=== PATIENT | female | born 1965 | race Caucasian/White ===

== ENCOUNTER 2018-01-29 07:57 | Inpatient (IN) | payer BC ==
[~2018-01-29] VITALS: Ht 175.3 cm; Wt 105.0 kg
[2018-01-29] VITALS (13 sets, daily range): BP systolic 122–157; BP diastolic 68–95; PULSE 72–88; TEMP 36.6–37.1; O2SAT 95–100; Ht 175.3 cm; Wt 105.0 kg
[~2018-01-29 07:57] MED LIST: LEVO125T72 PO; MULT-922 PO; OXYC1TAB3 PO; PRT40 PO; RANI300T2 PO; SIMV5TAB2 PO; TRAM-10 PO
[2018-01-29] MEDS ORDERED: FAMOTIDINE 20MG/5ML IV PUSH IV STA (08:13)
[2018-01-29] MEDS ORDERED: PANTOprazole INJ 40 MG in SYRINGE 0 ML IV ONE ×2 (08:15→11:00)
--- NOTE | 2018-01-29 08:16 | EMERGENCY ROOM VISIT NOTE ---
History Report prepared by Dylon: Heidi Anthony Under the Supervision of: Dr. Zachery Mejias D.O. First contact with patient: 08:05 Chief Complaint: REFERRED BY DOCTOR Stated Complaint: H AND H 5.3 OR 6 History of Present Illness The patient is a 53 year old female who presents to the Emergency Room with complaints of abnormal lab results. She reports she saw her PCP yesterday because she "looked pale" and has been feeling weak for the past month. She had lab work drawn and her Hemoglobin came back at 5.3, so her doctor referred her here to the ED. The patient admits to using NSAID's frequently. She takes daily Protonix for a history of gastric ulcers but has not yet taken her dose today. She does not take daily blood thinners. She admits to abdominal pain and exertional chest pain. She denies any shortness of breath. She has been nauseous but has not vomited. She also complains of "dark stools" for the past 3 months. She follows with [facility] and states her last colonoscopy was in August 2016. Her last blood transfusion was 1.5 years ago. Source of History: patient Onset: [employer] Position: other (global) Quality: other (abnormal labs) Timing: constant Associated Symptoms: + chest pain, + nausea, + abdominal pain, + hematochezia, + weakness, No SOB, No vomiting Review of Systems See HPI for pertinent positives & negatives. A total of 10 systems reviewed and were otherwise negative. Past Medical & Surgical Medical Problems: (1) Chronic back pain (2) Gastric ulcer (3) HLD (hyperlipidemia) (4) Hypothyroidism Surgical Problems: (1) H/O laminectomy (2) H/O thyroidectomy (3) H/O total hysterectomy (4) H/O tubal ligation (5) History of ear surgery Family History Diabetes mellitus FH: cancer Stroke Social History Smoking Status: Never Smoker Alcohol Use: occasionally Drug Use: none Marital Status: Housing Status: lives with family Occupation Status: retired Current/Historical Medications Scheduled B-Complex Vitamins (Vitamin B Complex), 1 TAB PO DAILY Diclofenac (Voltaren), 50 MG PO TID Gabapentin (Neurontin), 300 MG PO HS Levothyroxine Sodium (Synthroid), 125 MCG PO DAILY Omeprazole (Prilosec), 20 CAP PO DAILY Ranitidine (Zantac), 300 MG PO HS Simvastatin (Zocor), 20 MG PO QPM Scheduled PRN Oxycodone Ir (Roxicodone Ir), 5 MG PO HS PRN for Severe Pain Tramadol (Ultram), 50 MG PO Q6H PRN for Pain Allergies Coded Allergies: Paroxetine (Verified Allergy, Unknown, ., 01/29/18) Physical Exam Vital Signs Date Time Temp Pulse Resp B/P (MAP) Pulse Ox O2 Delivery O2 Flow Rate FiO2 01/29/18 08:12 98 Room Air 01/29/18 07:59 36.5 89 18 133/74 100 Room Air Physical Exam GENERAL: Patient is awake alert in no acute distress patient is resting comfortably and showing no signs of anxiety EYES: The conjunctivae are clear. The pupils are round and reactive. EARS, NOSE, MOUTH AND THROAT: The nose is without any evidence of any deformity. Mucous membranes are moist tongue is midline NECK: The neck is nontender and supple. RESPIRATORY: Normal respiratory effort is noted there is no evidence of wheezing rhonchi or rales CARDIOVASCULAR: Regular rate and rhythm noted, systolic murmur suggested, there are no rubs or gallops normal S1 normal S2 GASTROINTESTINAL: The abdomen is mildly distended but soft. Epigastric tenderness to palpation, no guarding or rigidity. Bowel sounds are present in all quadrants. RECTAL: Dark stool, strongly heme positive. MUSCULOSKELETAL/EXTREMITIES: There is no evidence of gross deformity full range of motion is noted in the hips and shoulders SKIN: There is no obvious evidence of any rash. There are no petechiae, pallor or cyanosis noted. NEUROLOGIC: Patient is awake alert and oriented x3 Medical Decision & Procedures ER Provider Diagnostic Interpretation: Radiology results as stated below per my review and radiologist interpretation: CHEST ONE VIEW PORTABLE CLINICAL HISTORY: Altered mental status. COMPARISON STUDY: Chest radiograph August 30, 2016. FINDINGS: Lung volumes are normal. There is no pneumothorax or pleural effusion. Postoperative findings within the lumbar spine are partially imaged. There is moderate cardiomegaly with pulmonary vascular congestion. There is no evidence for overt edema. A large hiatal hernia is present. IMPRESSION: 1. Moderate cardiomegaly. Pulmonary vessels congestion without overt edema. 2. Large hiatal hernia. Electronically signed by: Antonio Park M.D. 01/29/2018 8:37 AM Laboratory Results 01/29/18 08:24 Red Blood Count 3.09, Mean Corpuscular Volume 67.0, Mean Corpuscular Hemoglobin 19.1, Mean Corpuscular Hemoglobin Concent 28.5, Mean Platelet Volume 8.2, Neutrophils (%) (Auto) 69.1, Lymphocytes (%) (Auto) 20.9, Monocytes (%) (Auto) 7.9, Eosinophils (%) (Auto) 1.7, Basophils (%) (Auto) 0.3, Neutrophils # (Auto) 5.26, Lymphocytes # (Auto) 1.59, Monocytes # (Auto) 0.60, Eosinophils # (Auto) 0.13, Basophils # (Auto) 0.02 01/29/18 08:24 Test 01/29/18 08:24 01/29/18 08:31 01/29/18 08:40 White Blood Count 7.61 K/uL (4.8-10.8) Red Blood Count 3.09 M/uL (4.2-5.4) Hemoglobin 5.9 g/dL (12.0-16.0) Hematocrit 20.7 % (37-47) Mean Corpuscular Volume 67.0 fL (80-100) Mean Corpuscular Hemoglobin 19.1 pg (25-34) Mean Corpuscular Hemoglobin Concent 28.5 g/dl (32-36) Platelet Count 369 K/uL (130-400) Mean Platelet Volume 8.2 fL (7.4-10.4) Neutrophils (%) (Auto) 69.1 % Lymphocytes (%) (Auto) 20.9 % Monocytes (%) (Auto) 7.9 % Eosinophils (%) (Auto) 1.7 % Basophils (%) (Auto) 0.3 % Neutrophils # (Auto) 5.26 K/uL (1.4-6.5) Lymphocytes # (Auto) 1.59 K/uL (1.2-3.4) Monocytes # (Auto) 0.60 K/uL (0.11-0.59) Eosinophils # (Auto) 0.13 K/uL (0-0.5) Basophils # (Auto) 0.02 K/uL (0-0.2) RDW Standard Deviation 48.4 fL (36.4-46.3) RDW Coefficient of Variation 19.6 % (11.5-14.5) Immature Granulocyte % (Auto) 0.1 % Immature Granulocyte # (Auto) 0.01 K/uL (0.00-0.02) Nucleated RBC Absolute Count (auto) 0.02 K/uL (0-0) Nucleated Red Blood Cells % 0.2 % Large Platelets 1+ Hypochromasia PRESENT Absolute Reticulocyte Count 0.08 10^6/uL (0.02-0.10) Percent Reticulocyte Count 2.7 % (0.5-2.0) Prothrombin Time 10.0 SECONDS (9.0-12.0) Prothromb Time International Ratio 1.0 (0.9-1.1) Activated Partial Thromboplast Time 21.3 SECONDS (21.0-31.0) Partial Thromboplastin Ratio 0.8 Anion Gap 7.0 mmol/L (3-11) Est Creatinine Clear Calc Drug Dose 84.0 ml/min Estimated GFR () 75.3 Estimated GFR (Non- 64.9 BUN/Creatinine Ratio 13.3 (10-20) Calcium Level 8.3 mg/dl (8.5-10.1) Magnesium Level 2.1 mg/dl (1.8-2.4) Iron Level 11 mcg/dl (35-150) Total Iron Binding Capacity 439 mcg/dl (250-450) Transferrin 342 mg/dl (200-360) Transferrin % Saturation 2 % (15-50) Ferritin 1.6 ng/ml (8.0-388.0) Total Bilirubin 0.3 mg/dl (0.2-1) Direct Bilirubin < 0.1 mg/dl (0-0.2) Aspartate Amino Transf (AST/SGOT) 15 U/L (15-37) Alanine Aminotransferase (ALT/SGPT) 21 U/L (12-78) Alkaline Phosphatase 109 U/L (45-117) Troponin I < 0.015 ng/ml (0-0.045) Total Protein 6.9 gm/dl (6.4-8.2) Albumin 3.3 gm/dl (3.4-5.0) Lipase 121 U/L (73-393) Thyroid Stimulating Hormone (TSH) 0.678 uIu/ml (0.300-4.500) Vitamin B12 Level 1961 pg/mL (211-911) Folate 19.47 ng/mL (>5.38) Urine Color YELLOW Urine Appearance CLEAR (CLEAR) Urine pH 6.5 (4.5-7.5) Urine Specific [place] 1.006 (1.000-1.030) Urine Protein NEG (NEG) Urine Glucose (UA) NEG (NEG) Urine Ketones NEG (NEG) Urine Occult Blood NEG (NEG) Urine Nitrite NEG (NEG) Urine Bilirubin NEG (NEG) Urine Urobilinogen NEG (NEG) Urine Leukocyte Esterase SMALL (NEG) Urine WBC (Auto) 1-5 /hpf (0-5) Urine RBC (Auto) 0-4 /hpf (0-4) Urine Hyaline Casts (Auto) 0 /lpf (0-5) Urine Epithelial Cells (Auto) 10-20 /lpf (0-5) Urine Bacteria (Auto) NEG (NEG) Laboratory results per my review. Medications Administered Medications (Trade) Dose Ordered Sig/Dianelys Route Start Time Stop Time Status Last Admin Dose Admin Pantoprazole Sodium 40 mg/ Syringe 10 ml @ 5 mls/min NOW ONCE IV 01/29/18 08:15 01/29/18 08:16 DC 01/29/18 09:04 5 MLS/MIN Famotidine (Pepcid 20mg Iv Push) 20 mg ONE STAT IV 01/29/18 08:13 01/29/18 08:15 DC 01/29/18 09:04 20 MG ED Course 0809: The patient was evaluated in room A10. A complete history and physical examination were performed. 0813: Famotidine 20 mg IV. 0815: Pantoprazole Sodium 40 mg/syringe 10 ml @ 5 mls/min IV. 0825: The patient has consented to a blood transfusion. Signed documentation is on the chart. 0835: I discussed the patients case with [facility]. The patient will be further evaluated. 0838: I discussed the patients case with [facility]. The patient will be further evaluated. Medical Decision Prior records/ancillary studies reviewed. Triage Nursing notes reviewed. The patient's history was concerning for possible gastrointestinal bleeding. Differential diagnosis: Etiologies such as diverticulosis, AVM, coagulopathy, colitis, inflammatory bowel disease, malignancy, Katie-Linares tear, esophagitis, peptic ulcer disease , variceal bleed, gastritis, epistaxis, fissure, hemorrhoids, as well as others were entertained. The patient is a 53-year-old female who presented to the emergency department for an evaluation of generalized weakness and dark stool. The patient has a history of significant NSAID use. The patient was seen in our facility for similar complaints in the past. In 2016 she was found to have GI bleeding but no definite source could be found despite upper and lower endoscopies. The patient saw her primary care physician yesterday and was found to have significant anemia. For this reason she was sent to the emergency department today for further evaluation. The patient was found to have a normal blood pressure. I discussed her case with the on-call [facility] hospitalist group as well as the on-call [facility] ski molder. The patient was given blood transfusion as well as IV proton pump inhibitors and IV H2 blockers. She was reevaluated multiple times. I discussed patient's laboratory and radiographic studies with her. Medication Reconcilliation Current Medication List: was personally reviewed by me Blood Pressure Screening Patient's blood pressure: Normal blood pressure Blood pressure disposition: Did not require urgent referral Consults Time Called: 0830 Consulting Physician: [facility] Returned Call: 0835 I discussed the patients case with [facility]. The patient will be further evaluated. Additional Consults: Time Called: 0835 Consulted Physician: [facility] Returned Call: 0838 Additional Comments: I discussed the patients case with [facility]. The patient will be further evaluated. Impression Primary Impression: Upper GI bleed Additional Impressions: Anemia Weakness Critical Care I have personally spent greater than 75 minutes of critical care time in the direct management of this patient. This includes bedside care, interpretation of diagnostic studies, and testing, discussion with consultants, patient, and family members, and other required patient management activities. This 75 minutes is in excess of all separately billable procedures. Scribe Attestation The scribe's documentation has been prepared under my direction and personally reviewed by me in its entirety. I confirm that the note above accurately reflects all work, treatment, procedures, and medical decision making performed by me. Departure Information Dispostion Being Evaluated By Hospitalist Referrals Michell Lam D.O. (PCP) Patient Instructions My [facility] Problem Qualifiers Additional Impressions: Anemia Anemia type: unspecified type Qualified Codes: D64.9 - Anemia, unspecified
--- NOTE | 2018-01-29 08:38 | DIAGNOSTIC IMAGING REPORT ---
CHEST ONE VIEW PORTABLE CLINICAL HISTORY: Altered mental status. COMPARISON STUDY: Chest radiograph August 30, 2016. FINDINGS: Lung volumes are normal. There is no pneumothorax or pleural effusion. Postoperative findings within the lumbar spine are partially imaged. There is moderate cardiomegaly with pulmonary vascular congestion. There is no evidence for overt edema. A large hiatal hernia is present. IMPRESSION: 1. Moderate cardiomegaly. Pulmonary vessels congestion without overt edema. 2. Large hiatal hernia. Electronically signed by: Antonio Park M.D. 01/29/2018 8:37 AM Dictated Date/Time: 01/29/2018 8:36 AM
[2018-01-29 08:48] LABS: PTT PATIENT 21.3 SECONDS (21.0-31.0)
[2018-01-29 08:55] LABS: HEMATOCRIT 20.7 % (37-47); HEMOGLOBIN 5.9 g/dL (12.0-16.0); MEAN CORPUSCULAR HEMOGLOBIN 19.1 pg (25-34); MEAN CORPUSCULAR HGB CONC 28.5 g/dl (32-36); MEAN PLATELET VOLUME 8.2 fL (7.4-10.4); NUCLEATED RED BLOOD CELL ABS 0.02 K/uL (0-0); PLATELET COUNT 369 K/uL (130-400); RED CELL DISTRIBUTION WIDTH CV 19.6 % (11.5-14.5); RED CELL DISTRIBUTION WIDTH SD 48.4 fL (36.4-46.3); WHITE BLOOD COUNT 7.61 K/uL (4.8-10.8)
[2018-01-29] MEDS ORDERED: DICL50TA3 PO (08:59)
[2018-01-29] MEDS ORDERED: SIMV20TA5 PO (08:59)
[2018-01-29] MEDS ORDERED: ACETAMINOPHEN 325 MG TAB PO PRN (09:00)
[2018-01-29] MEDS ORDERED: ONDANSETRON INJ 2 MG/ML 2 ML VIAL IV PRN ×2 (09:00→16:30)
[2018-01-29 09:03] LABS: ALBUMIN 3.3 gm/dl (3.4-5.0); ALT/SGPT 21 U/L (12-78); AST/SGOT 15 U/L (15-37); BLOOD UREA NITROGEN 13 mg/dl (7-18); CALCIUM 8.3 mg/dl (8.5-10.1); CARBON DIOXIDE 23 mmol/L (21-32); CREATININE 0.98 mg/dl (0.60-1.20); GLUCOSE 113 mg/dl (70-99); LIPASE 121 U/L (73-393); POTASSIUM 3.9 mmol/L (3.5-5.1); SODIUM 140 mmol/L (136-145)
[2018-01-29 09:04] LABS: BASO % 0.3 %; BASO ABS # 0.02 K/uL (0-0.2); EOS % 1.7 %; EOS ABS # 0.13 K/uL (0-0.5); IG# 0.01 K/uL (0.00-0.02); LYMPH % 20.9 %; LYMPH ABS # 1.59 K/uL (1.2-3.4); MONO % 7.9 %; NEUT % 69.1 %; NEUT ABS # 5.26 K/uL (1.4-6.5)
[2018-01-29 09:14] LABS: ALKALINE PHOSPHATASE 109 U/L (45-117); TOTAL PROTEIN 6.9 gm/dl (6.4-8.2)
[2018-01-29] MEDS ORDERED: PRLSR20 PO (09:19)
--- NOTE | 2018-01-29 09:26 | Gastrointestinal Consultation ---
Gastrointestinal Consultation Date of Consultation: January 29, 2018 Attending Physician: Zachery Mejias Consulting Physician: Dunia Crowder Reason for Consultation: Anemia, UGI? History of Present Illness Patient is a 53 year old female who was referred to ED by her PCP for anemia seen in outpt labs. She's been c/o tiredness and also seeing dark tarry stools earlier this year along w intermittent black stools w BMs. Outpt CBC yesterday showed H/H of 03/20. She had GI workup for anemia, black stools in the past including EGD in 2016 (large hiatal hernia, possible Celiac's disease), Colonoscopy 2017 (diverticulosis), VCE 2017 (-). She's been taking Tramadol and Voltaren for back pain. Denies any other OTC NSAID or ASA. Repeat H/H 5.06/18, INR normal, BUN normal. She had CXR which showed moderate cardiomegaly w/o pulmonary edema, large hiatal hernia. Past Medical/Surgical History Medical Problems: (1) Anemia Status: Acute (2) Anemia Status: Acute (3) Upper GI bleed Status: Acute (4) Upper GI bleed Status: Acute (5) Weakness Status: Acute Past Medical History: See above, hyperlipidemia, gastric ulcer, hypothyroidism Past Surgical History: Surgical Problems: (1) H/O colonoscopy (2) H/O laminectomy (3) H/O thyroidectomy (4) H/O total hysterectomy (5) H/O tubal ligation (6) History of ear surgery Family History Diabetes mellitus FH: cancer Stroke Social History Smoking Status: Never Smoker Alcohol Use: occasionally Drug Use: none Marital Status: Housing Status: lives with family Occupation Status: retired Allergies Coded Allergies: Paroxetine (Verified Allergy, Unknown, ., 01/29/18) Current Medications Home Meds and Scripts Medications Dose Route/Sig Max Daily Dose Days Date Category Zocor (Simvastatin) 20 Mg Tab 20 Mg PO QPM 01/29/18 Reported Voltaren (Diclofenac Sodium) 50 Mg [place] 50 Mg PO TID 01/29/18 Reported Pantoprazole Sodium (Pantoprazole) 40 Mg Tab 40 Mg PO BID 30 09/01/16 Rx Multivitamin Adults (Multiple Vitamins W/ Minerals) 1 Tab Tab 1 Tab PO DAILY 08/30/16 Reported Roxicodone Ir (Oxycodone HCl) 5 Mg Tab 5 Mg PO HS PRN 08/30/16 Reported Zantac (Ranitidine HCl) 300 Mg Tab 300 Mg PO HS 08/30/16 Reported Ultram (Tramadol HCl) 50 Mg Tab 50 Mg PO Q6H PRN 08/30/16 Reported Synthroid (Levothyroxine Sodium) 125 Mcg Tab 125 Mcg PO DAILY 08/30/16 Reported Review of Systems Constitutional: + weakness, No fever, No chills Respiratory: No cough, No shortness of breath Abdomen: + see HPI, No pain, No nausea, No vomiting Physical Exam Date Time Temp Pulse Resp B/P (MAP) Pulse Ox O2 Delivery O2 Flow Rate FiO2 01/29/18 08:12 98 Room Air 01/29/18 07:59 36.5 89 18 133/74 100 Room Air General Appearance: WD/WN, no apparent distress, + obese Eyes: normal inspection, PERRL, EOMI Neck: supple, no JVD, trachea midline Respiratory/Chest: normal breath sounds, no respiratory distress, no accessory muscle use Cardiovascular: regular rate, rhythm, no gallop, no murmur Abdomen: normal bowel sounds, non tender, soft Extremities: normal inspection, no pedal edema, no calf tenderness Neurologic/Psych: alert, normal mood/affect, oriented x 3 Skin: normal color, no jaundice, no rash Laboratory Results Last 24 Hours Test 01/29/18 08:24 01/29/18 08:31 01/29/18 08:40 White Blood Count 7.61 K/uL Red Blood Count 3.09 M/uL Hemoglobin 5.9 g/dL Hematocrit 20.7 % Mean Corpuscular Volume 67.0 fL Mean Corpuscular Hemoglobin 19.1 pg Mean Corpuscular Hemoglobin Concent 28.5 g/dl Platelet Count 369 K/uL Mean Platelet Volume 8.2 fL Neutrophils (%) (Auto) 69.1 % Lymphocytes (%) (Auto) 20.9 % Monocytes (%) (Auto) 7.9 % Eosinophils (%) (Auto) 1.7 % Basophils (%) (Auto) 0.3 % Neutrophils # (Auto) 5.26 K/uL Lymphocytes # (Auto) 1.59 K/uL Monocytes # (Auto) 0.60 K/uL Eosinophils # (Auto) 0.13 K/uL Basophils # (Auto) 0.02 K/uL RDW Standard Deviation 48.4 fL RDW Coefficient of Variation 19.6 % Immature Granulocyte % (Auto) 0.1 % Immature Granulocyte # (Auto) 0.01 K/uL Nucleated RBC Absolute Count (auto) 0.02 K/uL Nucleated Red Blood Cells % 0.2 % Large Platelets 1+ Hypochromasia PRESENT Prothrombin Time 10.0 SECONDS Prothromb Time International Ratio 1.0 Activated Partial Thromboplast Time 21.3 SECONDS Partial Thromboplastin Ratio 0.8 Sodium Level 140 mmol/L Potassium Level 3.9 mmol/L Chloride Level 111 mmol/L Carbon Dioxide Level 23 mmol/L Anion Gap 7.0 mmol/L Blood Urea Nitrogen 13 mg/dl Creatinine 0.98 mg/dl Est Creatinine Clear Calc Drug Dose 84.0 ml/min Estimated GFR () 75.3 Estimated GFR (Non- 64.9 BUN/Creatinine Ratio 13.3 Random Glucose 113 mg/dl Calcium Level 8.3 mg/dl Magnesium Level 2.1 mg/dl Transferrin % Saturation % Direct Bilirubin < 0.1 mg/dl Aspartate Amino Transf (AST/SGOT) 15 U/L Alanine Aminotransferase (ALT/SGPT) 21 U/L Albumin 3.3 gm/dl Lipase 121 U/L Urine Color YELLOW Urine Appearance CLEAR Urine pH 6.5 Urine Specific [place] 1.006 Urine Protein NEG Urine Glucose (UA) NEG Urine Ketones NEG Urine Occult Blood NEG Urine Nitrite NEG Urine Bilirubin NEG Urine Urobilinogen NEG Urine Leukocyte Esterase SMALL Urine WBC (Auto) 1-5 /hpf Urine RBC (Auto) 0-4 /hpf Urine Hyaline Casts (Auto) 0 /lpf Urine Epithelial Cells (Auto) 10-20 /lpf Urine Bacteria (Auto) NEG Impression Patient is a 53 year old female who was referred to ED for anemia, seeing intermittently dark stools for about 1 yr and also dark tarry stools in September. She's had prior endoscopies and VCE workup for anemia, black stools but nothing significant source of GI bleed was found. On her previous EGD, bx with possible Celiac disease. She has a large hiatal hernia. Recently been taking Tramadol and Voltaren for low back pain. Plan - PPI bolus and gtt - Keep NPO; last drank coffee and creamer 0730. Plan for EGD eval to r/o PUD, other sources for UGI bleed around 1330. - Transfuse PRBC, monitor H/H - Further recs after EGD completed. I saw and evaluated the patient. She notes that she has had several weeks of dark sticky stools without hematemesis. She was started on Voltaren by her primary care provider despite the fact that she has had occult GI bleeding in the past. Physical examination No obvious distress Scleral icterus No significant abdominal tenderness Impression: Patient presents with signs suggestive of upper GI blood loss. I suspect that the patient likely has peptic ulcer. At this point I wonder if it may be a healing ulcer as her symptoms had started several weeks ago. Recommendations Avoid NSAID use in this patient Consider a Protonix drip Upper endoscopy to be expedited
[2018-01-29 09:27] LABS: RETIC COUNT % 2.7 % (0.5-2.0)
[2018-01-29] MEDS ORDERED: B-COTAB18 PO (09:27)
[2018-01-29] MEDS ORDERED: NRN/300 PO (09:27)
--- NOTE | 2018-01-29 09:44 | History and Physical ---
History & Physical Date & Time of Service: January 29, 2018 ~ 0830 Chief Complaint: Low blood count Primary Care Physician: Michell Lam D.O. History of Present Illness 53-year-old female he was referred to the ED by primary care for anemia. Patient has history of anemia in August 2016. It was suspected she had GI blood loss from chronic NSAID use. Patient underwent EGD, colonoscopy, capsule endoscopy study that did not reveal source of bleeding. Patient reports she has had intermittent dark stools since that time. She reports last time her stools were dark with the beginning of November. No bright red bleeding per rectum. Patient has noted increasing shortness of breath on exertion for the past couple of weeks. She has had some mild lightheadedness and dizziness but denies any syncopal events. She reports chronic epigastric pain which has been worse over the past month. She reports pain improves after eating. She has had nausea but denies vomiting. Patient reports she does not take over-the- counter Advil or Motrin, however was recently prescribed diclofenac on November 27. She denies chest pain. No fevers or chills. She denies any urinary symptoms. Patient was seen by primary care yesterday who obtained labs that showed a hemoglobin of 6.3. She was referred to the ER for further evaluation. In the ED, patient's hemoglobin is 5.9. She is hemodynamic is stable. She was given Protonix bolus and started on a drip. She was also typed and crossed for blood. Past Medical/Surgical History Medical Problems: (1) Chronic back pain Status: Chronic (2) HLD (hyperlipidemia) Status: Chronic (3) Hypothyroidism Status: Chronic Surgical Problems: (1) H/O laminectomy Status: Chronic (2) H/O thyroidectomy Status: Chronic (3) H/O total hysterectomy Status: Chronic (4) H/O tubal ligation Status: Chronic (5) History of ear surgery Status: Chronic Family History FH: brain cancer MOTHER FH: lung cancer MOTHER Stroke FATHER Social History Smoking Status: Former Smoker Alcohol Use: none Allergies Coded Allergies: Paroxetine (Verified Allergy, Unknown, ., 01/29/18) Home Medications Scheduled B-Complex Vitamins (Vitamin B Complex), 1 TAB PO DAILY Diclofenac (Voltaren), 50 MG PO TID Gabapentin (Neurontin), 300 MG PO HS Levothyroxine Sodium (Synthroid), 125 MCG PO DAILY Omeprazole (Prilosec), 20 CAP PO DAILY Ranitidine (Zantac), 300 MG PO HS Simvastatin (Zocor), 20 MG PO QPM Scheduled PRN Oxycodone Ir (Roxicodone Ir), 5 MG PO HS PRN for Severe Pain Tramadol (Ultram), 50 MG PO Q6H PRN for Pain Review of Systems ROS per HPI, all other systems reviewed and negative Physical Exam Vital Signs Date Time Temp Pulse Resp B/P (MAP) Pulse Ox O2 Delivery O2 Flow Rate FiO2 01/29/18 09:15 96 01/29/18 09:11 86 18 141/75 98 Room Air 01/29/18 08:12 98 Room Air 01/29/18 07:59 36.5 89 18 133/74 100 Room Air General Appearance: WD/WN, no apparent distress Head: normocephalic, atraumatic Eyes: normal inspection, EOMI, sclerae normal ENT: hearing grossly normal, + pertinent finding (Mucous membranes moist) Neck: supple, no JVD, trachea midline Respiratory/Chest: lungs clear, normal breath sounds, no respiratory distress Cardiovascular: regular rate, rhythm, no edema, normal peripheral pulses Abdomen/GI: normal bowel sounds, non tender, soft, no organomegaly Extremities/Musculoskelatal: normal inspection, no calf tenderness, normal capillary refill Neurologic/Psych: no motor/sensory deficits, alert, normal mood/affect, oriented x 3 Skin: normal color, warm/dry Diagnostics Laboratory Results Results Past 24 Hours Test 01/29/18 08:24 01/29/18 08:31 01/29/18 08:40 Range/Units White Blood Count 7.61 4.8-10.8 K/uL Red Blood Count 3.09 4.2-5.4 M/uL Hemoglobin 5.9 12.0-16.0 g/dL Hematocrit 20.7 37-47 % Mean Corpuscular Volume 67.0 80-100 fL Mean Corpuscular Hemoglobin 19.1 25-34 pg Mean Corpuscular Hemoglobin Concent 28.5 32-36 g/dl Platelet Count 369 130-400 K/uL Mean Platelet Volume 8.2 7.4-10.4 fL Neutrophils (%) (Auto) 69.1 % Lymphocytes (%) (Auto) 20.9 % Monocytes (%) (Auto) 7.9 % Eosinophils (%) (Auto) 1.7 % Basophils (%) (Auto) 0.3 % Neutrophils # (Auto) 5.26 1.4-6.5 K/uL Lymphocytes # (Auto) 1.59 1.2-3.4 K/uL Monocytes # (Auto) 0.60 0.11-0.59 K/uL Eosinophils # (Auto) 0.13 0-0.5 K/uL Basophils # (Auto) 0.02 0-0.2 K/uL RDW Standard Deviation 48.4 36.4-46.3 fL RDW Coefficient of Variation 19.6 11.5-14.5 % Immature Granulocyte % (Auto) 0.1 % Immature Granulocyte # (Auto) 0.01 0.00-0.02 K/uL Nucleated RBC Absolute Count (auto) 0.02 0-0 K/uL Nucleated Red Blood Cells % 0.2 % Large Platelets 1+ Hypochromasia PRESENT Absolute Reticulocyte Count 0.08 0.02-0.10 10^6/uL Percent Reticulocyte Count 2.7 0.5-2.0 % Prothrombin Time 10.0 9.0-12.0 SECONDS Prothromb Time International Ratio 1.0 0.9-1.1 Activated Partial Thromboplast Time 21.3 21.0-31.0 SECONDS Partial Thromboplastin Ratio 0.8 Sodium Level 140 136-145 mmol/L Potassium Level 3.9 3.5-5.1 mmol/L Chloride Level 111 98-107 mmol/L Carbon Dioxide Level 23 21-32 mmol/L Anion Gap 7.0 3-11 mmol/L Blood Urea Nitrogen 13 7-18 mg/dl Creatinine 0.98 0.60-1.20 mg/dl Est Creatinine Clear Calc Drug Dose 84.0 ml/min Estimated GFR () 75.3 Estimated GFR (Non- 64.9 BUN/Creatinine Ratio 13.3 10-20 Random Glucose 113 70-99 mg/dl Calcium Level 8.3 8.5-10.1 mg/dl Magnesium Level 2.1 1.8-2.4 mg/dl Transferrin % Saturation 15-50 % Total Bilirubin 0.3 0.2-1 mg/dl Direct Bilirubin < 0.1 0-0.2 mg/dl Aspartate Amino Transf (AST/SGOT) 15 15-37 U/L Alanine Aminotransferase (ALT/SGPT) 21 12-78 U/L Alkaline Phosphatase 109 45-117 U/L Troponin I < 0.015 0-0.045 ng/ml Total Protein 6.9 6.4-8.2 gm/dl Albumin 3.3 3.4-5.0 gm/dl Lipase 121 73-393 U/L Thyroid Stimulating Hormone (TSH) 0.678 0.300-4.500 uIu/ml Vitamin B12 Level 1961 211-911 pg/mL Folate 19.47 >5.38 ng/mL Urine Color YELLOW Urine Appearance CLEAR CLEAR Urine pH 6.5 4.5-7.5 Urine Specific [place] 1.006 1.000-1.030 Urine Protein NEG NEG Urine Glucose (UA) NEG NEG Urine Ketones NEG NEG Urine Occult Blood NEG NEG Urine Nitrite NEG NEG Urine Bilirubin NEG NEG Urine Urobilinogen NEG NEG Urine Leukocyte Esterase SMALL NEG Urine WBC (Auto) 1-5 0-5 /hpf Urine RBC (Auto) 0-4 0-4 /hpf Urine Hyaline Casts (Auto) 0 0-5 /lpf Urine Epithelial Cells (Auto) 10-20 0-5 /lpf Urine Bacteria (Auto) NEG NEG Diagnostic Radiology CXR IMPRESSION: 1. Moderate cardiomegaly. Pulmonary vessels congestion without overt edema. 2. Large hiatal hernia. Impression Assessment and Plan ANEMIA LIKELY UPPER GI BLEED -Admit to telemetry -Patient presenting with intermittently dark stools, worsening epigastric pain, exertional shortness of breath; was seen by primary care yesterday who obtained labs that showed hemoglobin of 6.3, patient was referred to the ER for further evaluation -Currently hemodynamically stable -Patient has history of anemia in August 2016, was felt to be due to GI loss from chronic NSAID use; patient underwent EGD, colonoscopy, capsule endoscopy study without source of bleeding identified -Hgb 13.3 12/2016, Hgb 11.4 11/28/17 -Check iron studies -Patient started on diclofenac 11/2017 -Case discussed with CHADD Dorantes -N.p.o., IV PPI drip, 2 unit PRBC transfusion -Possible EGD today HYPOTHYROIDISM -Continue levothyroxine DYSLIPIDEMIA -Continue statin CHRONIC BACK PAIN -Continue gabapentin, as needed oxycodone and tramadol; diclofenac on hold due to possible upper GI bleeding DVT PROPHYLAXIS -SCDs due to anemia, possible GI bleeding DISPOSITION -In my clinical judgment this beneficiary meets acute admission criteria, established by [facility], that includes being hospitalized through two midnights. Addendum: I have seen and examined the patient and agree with the assessment and plan as stated above. Ivan, DO Resuscitation Status VTE Prophylaxis Will order VTE Prophylaxis: Yes
[2018-01-29] MEDS ORDERED: PANTOprazole INJ 40 MG in DEXTROSE 5% 100ML IV SCH (10:45)
[2018-01-29] MEDS: SODIUM CHLORIDE 0.9% 1000ML 1,000 ML IV SCH ×2 (11:13→21:43)
[2018-01-29] MEDS: OXYCODONE HCL IR 5 MG TAB (IMMEDIATE RELEASE) PO PRN ×2 (11:38→21:03)
[2018-01-29] MEDS ORDERED: LIDOCAINE HCL 2% 2 ML VIAL (20MG/ML) ONE ×2 (13:39→15:53)
[2018-01-29] MEDS ORDERED: PROPOFOL IV EMULSION 10 MG/ML 20 ML VIAL ONE ×2 (13:39→15:53)
[2018-01-29] MEDS ORDERED: FENTANYL CITRATE INJ 50 MCG/1 ML 2 ML VIAL ONE ×2 (13:39→15:54)
[2018-01-29] MEDS ORDERED: MIDAZOLAM HCL 1 MG/ML 2ML VIAL ONE (15:53)
[2018-01-29] MEDS ORDERED: ONDANSETRON INJ 2 MG/ML 2 ML VIAL ONE (15:53)
[2018-01-29] MEDS ORDERED: NEOSTIGMINE METHYLSULFATE 5 MG/5 ML SYR ONE (15:53)
[2018-01-29] MEDS ORDERED: DEXAMETHASONE SOD INJ 4 MG/ML VIAL ONE (15:53)
[2018-01-29] MEDS ORDERED: GLYCOPYRROLATE INJ 0.2 MG/ML VIAL ONE (15:53)
--- NOTE | 2018-01-29 16:19 | GI REPORT ---
Patient Name: Erica Salazar Procedure Date: 01/29/2018 4:04 PM Date of : 1965 Admit Type: Inpatient Age: 53 Gender: Female Attending MD: Dunia Crowder DO Procedure: Upper GI endoscopy Providers: Dunia Crowder DO Referring MD: Lucita Love Do, Isidro Santiago MD, Michell Lam Indications: Melena Medicines: General Anesthesia Complications: No immediate complications. Estimated blood loss: Minimal. Estimated Blood Loss: Estimated blood loss was minimal. Procedure: Pre-Anesthesia Assessment: - Prior to the procedure, a History and Physical was performed, and patient medications, allergies and sensitivities were reviewed. The patient's tolerance of previous anesthesia was reviewed. - The risks and benefits of the procedure and the sedation options and risks were discussed with the patient. All questions were answered and informed consent was obtained. - Patient identification and proposed procedure were verified prior to the procedure by the physician, the nurse and the video game developer. The procedure was verified in the procedure room. - Pre-procedure physical examination revealed no contraindications to sedation. - ASA Grade Assessment: III - A patient with severe systemic disease. - After reviewing the risks and benefits, the patient was deemed in satisfactory condition to undergo the procedure. - The anesthesia plan was to use general anesthesia. - Immediately prior to administration of medications, the patient was re-assessed for adequacy to receive sedatives. - The heart rate, respiratory rate, oxygen saturations, blood pressure, adequacy of pulmonary ventilation, and response to care were monitored throughout the procedure. - The physical status of the patient was re-assessed after the procedure. After obtaining informed consent, the endoscope was passed under direct vision. Throughout the procedure, the patient's blood pressure, pulse, and oxygen saturations were monitored continuously. The scope was introduced through the mouth, and advanced to the third part of duodenum. The upper GI endoscopy was accomplished without difficulty. The patient tolerated the procedure well. Findings: The upper third of the esophagus and middle third of the esophagus were normal. A web was found at the gastroesophageal junction (no dilation as patient is without dysphagia today). The cardia, gastric fundus and gastric body were normal. Patchy mild inflammation characterized by congestion (edema), erythema and granularity was found in the gastric antrum. Biopsies were taken with a cold forceps for histology. Estimated blood loss was minimal. Several non-bleeding superficial gastric ulcers of mild severity with no stigmata of bleeding were found in the gastric antrum. The largest lesion was 5 mm in largest dimension. The examined duodenum was normal. Impression: - Normal upper third of esophagus and middle third of esophagus. - Web at the gastroesophageal junction. - Normal cardia, gastric fundus and gastric body. - Gastritis. Biopsied. - Healing gastric ulcers with clean base. NSAID induced etiology. Likely source of melena and anemia. - Normal examined duodenum. Recommendation: - Return patient to hospital [facility] for ongoing care. - Use Prilosec (omeprazole) 40 mg PO BID for 6 weeks. - Ferrous sulfate at 325 mg orally BID for 6 weeks. Follow up with hemoglobin in 2 weeks. - Advance diet as tolerated. Dunia Crowder D.O. Dunia Crowder, 01/29/2018 4:19:01 PM This report has been signed electronically. Note Initiated On: 01/29/2018 4:04 PM Number of Addenda: 0 I attest to the content of the Intraoperative Record and orders documented therein, exceptions below {[id number]}
--- NOTE | 2018-01-29 16:20 | [facility] Post Operative Brief Note ---
Immediate Operative Summary Operative Date January 29, 2018. Pre-Operative Diagnosis Melana Post-Operative Diagnosis Gastritis, Gastric Ulcers Procedure(s) Performed Esophagogastroduodenoscopy Surgeon Dr. Dunia Crowder Economic History Teacher Surgeon(s) none Estimated Blood Loss 0 ml Findings Consistent with Post-Op Diagnosis Specimens Gastric antrum Drains None Anesthesia Type General Complication(s) none Disposition Accompanied Pt To Recover: no Disposition: Recovery Room / PACU
[2018-01-29] MEDS ORDERED: FENTANYL CITRATE INJ 50 MCG/1 ML 2 ML VIAL IV PRN (16:30)
[2018-01-29] MEDS ORDERED: ATROPINE SULFATE 0.1 MG/ML 5ML SYR IV PRN (16:30)
[2018-01-29] MEDS ORDERED: PROMETHAZINE HCL INJ 12.5 MG in SODIUM CHLORIDE 0.9% 50ML 50 ML IV PRN (16:30)
[2018-01-29] MEDS ORDERED: PHENYLEPHRINE 100MCG/ML 5ML SYR IV PRN (16:30)
[2018-01-29] MEDS ORDERED: EpHEDrine SULFATE INJ 50 MG/ML AMP IV PRN (16:30)
--- NOTE | 2018-01-29 16:38 | Progress Note ---
Progress Note Date of Service January 29, 2018. Progress Note Patient underwent an upper endoscopy this afternoon. She did have several superficial gastric ulcers which are likely the cause of her melena from last month. The patient was taking nonsteroidals which is likely the issue of her symptoms. At this point no formal GI follow-up as needed. Recommendations Advance diet as tolerated Pantoprazole or omeprazole 40 mg 1 time daily Iron supplement 2 times daily for 8 weeks CBC with PCM in 2 weeks f/u with Dr. Santiago in GI as needed
--- NOTE | 2018-01-29 16:54 | Anesthesiology Progress Note ---
Anesthesia Post Op Note Date & Time January 29, 2018 at 16:54 Vital Signs Pain Intensity: 0 Vital Signs Past 12 Hours Date Time Temp Pulse Resp B/P (MAP) Pulse Ox O2 Delivery O2 Flow Rate FiO2 01/29/18 16:39 90 18 01/29/18 16:39 90 18 100 01/29/18 16:35 140/78 01/29/18 16:34 90 15 100 01/29/18 16:34 90 15 01/29/18 16:30 125/97 01/29/18 16:29 95 16 100 01/29/18 16:29 96 16 01/29/18 16:24 36.6 107 16 122/87 100 Oxymask 10 01/29/18 16:24 100 14 01/29/18 16:24 100 14 122/87 100 01/29/18 15:45 36.6 74 16 159/91 (113) 100 Room Air 01/29/18 13:51 36.6 75 20 151/73 (99) 98 Room Air 01/29/18 13:50 36.6 75 20 151/73 98 01/29/18 13:00 36.7 72 20 130/68 100 01/29/18 12:00 36.6 79 20 122/80 100 01/29/18 12:00 36.6 80 16 122/80 (94) 100 Room Air 01/29/18 12:00 100 Room Air 01/29/18 11:30 36.6 84 18 150/72 100 01/29/18 11:27 36.6 88 18 150/72 100 01/29/18 10:28 36.6 79 18 157/72 100 01/29/18 10:08 37.1 77 16 152/75 97 01/29/18 09:46 83 22 137/76 96 Room Air 01/29/18 09:20 98 Room Air 01/29/18 09:15 96 01/29/18 09:11 86 18 141/75 98 Room Air 01/29/18 08:12 98 Room Air 01/29/18 07:59 36.5 89 18 133/74 100 Room Air Notes Mental Status: alert / awake / arousable, participated in evaluation Pt Amnestic to Procedure: Yes Nausea / Vomiting: adequately controlled Pain: adequately controlled Airway Patency, RR, SpO2: stable & adequate BP & HR: stable & adequate Hydration State: stable & adequate Anesthetic Complications: no major complications apparent
[2018-01-29] MEDS: TRAMADOL HCL 50 MG TAB PO PRN (19:13)
[2018-01-29 19:29] LABS: HEMATOCRIT 28.6 % (37-47); HEMOGLOBIN 8.8 g/dL (12.0-16.0)
[2018-01-29] MEDS ORDERED: GABAPENTIN 300 MG CAP PO SCH (21:00)
[2018-01-29] MEDS ORDERED: SIMVASTATIN 20 MG TAB PO SCH (21:00)
[2018-01-29] MEDS: PANTOprazole SOD 40 MG TAB PO SCH (21:04)
[2018-01-30] VITALS: O2SAT 100
[2018-01-30 03:04] VITALS: BP 115/67; PULSE 78; TEMP 36.6; O2SAT 96
[2018-01-30 04:00] VITALS: O2SAT 100
[2018-01-30] MEDS ORDERED: LEVOTHYROXINE 125 MCG TAB PO SCH (06:00)
[2018-01-30 06:54] VITALS: BP 117/72; PULSE 69; TEMP 36.8; O2SAT 99
[2018-01-30 07:00] LABS: HEMATOCRIT 31.1 % (37-47); HEMOGLOBIN 9.6 g/dL (12.0-16.0); MEAN CORPUSCULAR HEMOGLOBIN 21.6 pg (25-34); MEAN CORPUSCULAR HGB CONC 30.9 g/dl (32-36); MEAN PLATELET VOLUME 8.3 fL (7.4-10.4); PLATELET COUNT 358 K/uL (130-400); RED CELL DISTRIBUTION WIDTH CV 19.8 % (11.5-14.5); RED CELL DISTRIBUTION WIDTH SD 50.6 fL (36.4-46.3); WHITE BLOOD COUNT 13.34 K/uL (4.8-10.8)
[2018-01-30 07:34] LABS: CALCIUM 8.9 mg/dl (8.5-10.1); CREATININE 0.93 mg/dl (0.60-1.20); POTASSIUM 4.5 mmol/L (3.5-5.1)
--- NOTE | 2018-01-30 07:54 | Anesthesiology Progress Note ---
Anesthesia Post Op Note Date & Time January 30, 2018 at 07:53 Vital Signs Pain Intensity: 8.0 Vital Signs Past 12 Hours Date Time Temp Pulse Resp B/P (MAP) Pulse Ox O2 Delivery O2 Flow Rate FiO2 01/30/18 06:54 36.8 69 18 117/72 (87) 99 Room Air 01/30/18 04:00 100 Room Air 01/30/18 03:04 36.6 78 17 115/67 (83) 96 Room Air 01/30/18 00:00 100 Room Air 01/29/18 23:18 36.6 76 18 137/76 (96) 95 Room Air 01/29/18 20:00 100 Room Air Notes Mental Status: alert / awake / arousable, participated in evaluation Pt Amnestic to Procedure: Yes Nausea / Vomiting: adequately controlled Pain: adequately controlled Airway Patency, RR, SpO2: stable & adequate BP & HR: stable & adequate Hydration State: stable & adequate Anesthetic Complications: no major complications apparent
[2018-01-30] MEDS: PANTOprazole SOD 40 MG TAB PO SCH (08:04)
[2018-01-30] MEDS: TRAMADOL HCL 50 MG TAB PO PRN (09:27)
--- NOTE | 2018-01-30 10:46 | Gastroenterology Progress Note ---
Progress Note Date of Service: January 30, 2018 Subjective Pt evaluation today including: conversation w/ patient, physical exam, chart review, lab review, review of studies, review of inpatient medication list Ms. Erica Salazar is a 53 yr old female admitted with nausea/epigastric pain, melena and anemia with Hb 5.9. She received 2 units and Hb is now 9.6. EGD yesterday with several small, superficial gastric ulcers, largest 5mm. Today pain with eating breakfast but no nausea/vomiting and wants to try regular consistency diet and be discharged. Review of Systems Constitutional: No fever Respiratory: No cough Cardiac: No chest pain Abdomen: + see HPI, + pain, No nausea, No vomiting, No diarrhea, No constipation, No GI bleeding Female : No dysuria Neuro: No memory loss Psych: No depression symptoms Heme: No abnormal bleeding/bruising Endo: No fatigue Skin: No rash Medications Current Inpatient Medications Medications (Trade) Dose Ordered Sig/Dianelys Route Start Time Stop Time Status Last Admin Dose Admin Acetaminophen (Tylenol Tab) 650 mg Q4H PRN PO 01/29/18 09:00 02/28/18 08:59 Ondansetron HCl (Zofran Inj) 4 mg Q6H PRN IV 01/29/18 09:00 02/28/18 08:59 Sodium Chloride 1,000 ml @ 80 mls/hr [id number] IV 01/29/18 09:00 02/28/18 08:59 01/29/18 21:43 80 MLS/HR Gabapentin (Neurontin Cap) 300 mg HS PO 01/29/18 21:00 02/28/18 20:59 01/29/18 21:15 300 MG Levothyroxine Sodium (Synthroid Tab) 125 mcg DAILYBB PO 01/30/18 06:00 03/01/18 05:59 01/30/18 05:52 125 MCG Oxycodone HCl (Roxicodone Immediate Rel Tab) 5 mg HS PRN PO 01/29/18 09:30 02/12/18 09:29 01/29/18 21:03 5 MG Simvastatin (Zocor Tab) 20 mg QPM PO 01/29/18 21:00 02/28/18 20:59 01/29/18 21:43 20 MG Tramadol HCl (Ultram Tab) 50 mg Q6H PRN PO 01/29/18 09:30 02/28/18 09:29 01/30/18 09:27 50 MG Pantoprazole Sodium (Protonix Tab) 40 mg BID PO 01/29/18 21:00 02/28/18 20:59 01/30/18 08:04 40 MG Objective Vital Signs Date Time Temp Pulse Resp B/P (MAP) Pulse Ox O2 Delivery O2 Flow Rate FiO2 01/30/18 08:00 Room Air 01/30/18 06:54 36.8 69 18 117/72 (87) 99 Room Air 01/30/18 04:00 100 Room Air 01/30/18 03:04 36.6 78 17 115/67 (83) 96 Room Air 01/30/18 00:00 100 Room Air 01/29/18 23:18 36.6 76 18 137/76 (96) 95 Room Air 01/29/18 20:00 100 Room Air 01/29/18 18:21 87 20 139/95 (110) 99 Room Air 01/29/18 18:06 88 18 136/87 (103) 99 Room Air 01/29/18 18:00 100 Room Air 01/29/18 17:42 37.1 99 Room Air 01/29/18 17:40 134/72 01/29/18 17:37 86 18 01/29/18 17:37 86 18 99 01/29/18 17:35 139/82 01/29/18 17:32 89 16 01/29/18 17:32 88 16 99 01/29/18 17:30 123/82 01/29/18 17:27 90 13 01/29/18 17:27 90 13 99 01/29/18 17:26 91 16 98 01/29/18 17:26 91 16 01/29/18 17:25 147/84 01/29/18 17:21 95 16 01/29/18 17:21 94 16 127/84 99 01/29/18 17:16 89 15 01/29/18 17:16 88 15 99 01/29/18 17:15 132/86 01/29/18 17:13 86 17 01/29/18 17:13 87 17 97 01/29/18 17:11 132/85 01/29/18 17:08 89 16 96 01/29/18 17:08 89 16 01/29/18 17:05 138/82 01/29/18 17:03 92 14 98 01/29/18 17:03 92 14 01/29/18 17:02 88 15 01/29/18 17:02 90 15 100 01/29/18 17:00 140/92 01/29/18 16:57 93 16 99 01/29/18 16:57 91 16 01/29/18 16:56 37.1 100 Room Air 01/29/18 16:55 150/100 01/29/18 16:52 106 14 01/29/18 16:52 104 14 100 01/29/18 16:51 127/76 01/29/18 16:50 94 15 100 01/29/18 16:50 94 15 01/29/18 16:45 90 13 01/29/18 16:45 90 13 127/96 100 01/29/18 16:41 142/70 01/29/18 16:40 91 18 01/29/18 16:40 92 18 100 01/29/18 16:39 90 18 01/29/18 16:39 90 18 100 01/29/18 16:35 140/78 01/29/18 16:34 90 15 100 01/29/18 16:34 90 15 01/29/18 16:30 125/97 01/29/18 16:29 95 16 100 01/29/18 16:29 96 16 01/29/18 16:24 36.6 107 16 122/87 100 Oxymask 10 01/29/18 16:24 100 14 01/29/18 16:24 100 14 122/87 100 01/29/18 15:45 36.6 74 16 159/91 (113) 100 Room Air 01/29/18 13:51 36.6 75 20 151/73 (99) 98 Room Air 01/29/18 13:50 36.6 75 20 151/73 98 01/29/18 13:00 36.7 72 20 130/68 100 01/29/18 12:00 36.6 79 20 122/80 100 01/29/18 12:00 36.6 80 16 122/80 (94) 100 Room Air 01/29/18 12:00 100 Room Air 01/29/18 11:30 36.6 84 18 150/72 100 5/3/18 11:27 36.6 88 18 150/72 100 Physical Exam General Appearance: no apparent distress ENT: pharynx normal Neck: thyroid normal, no JVD Respiratory/Chest: lungs clear Cardiovascular: regular rate, rhythm, no JVD, no murmur Abdomen: non tender, soft Neurologic/Psych: alert, normal mood/affect, oriented x 3 Skin: no jaundice Laboratory Results Last 24 Hours Test 01/29/18 18:53 01/30/18 06:36 Hemoglobin 8.8 g/dL 9.6 g/dL Hematocrit 28.6 % 31.1 % White Blood Count 13.34 K/uL Red Blood Count 4.44 M/uL Mean Corpuscular Volume 70.0 fL Mean Corpuscular Hemoglobin 21.6 pg Mean Corpuscular Hemoglobin Concent 30.9 g/dl RDW Standard Deviation 50.6 fL RDW Coefficient of Variation 19.8 % Platelet Count 358 K/uL Mean Platelet Volume 8.3 fL Sodium Level 138 mmol/L Potassium Level 4.5 mmol/L Chloride Level 110 mmol/L Carbon Dioxide Level 23 mmol/L Anion Gap 5.0 mmol/L Blood Urea Nitrogen 8 mg/dl Creatinine 0.93 mg/dl Est Creatinine Clear Calc Drug Dose 88.2 ml/min Estimated GFR () 80.2 Estimated GFR (Non- 69.2 BUN/Creatinine Ratio 9.1 Random Glucose 97 mg/dl Calcium Level 8.9 mg/dl Chemistry Specimen Hemolysis Assessment and Plan Ms. Salazar is a 53 yr old female admitted with anemia, EGD with gastric ulcers. Plan: 1. Consider UGI series to r/o large hiatal hernia as mentioned on EGD [place] [address] Santiago, though not apparent on EGD yesterday. This test could but could be done as an OP. If present, Mango's erosions could be the cause of slow, persistent bleeding that would cause anemia. 2. Regular consistency diet. 3. BID PPI x 6 weeks, then should be on daily PPI (40mg) daily - mcc. 4. Carafate liquid QID x 2 weeks. 5. GI will sign off. Please notify us if new or worsening GI symptoms. I saw and evaluated the patient she seems to be doing better today. Recommendations: Protonix or omeprazole 1 time daily Iron supplement 2 times daily for 8 weeks then 1 time daily UGI series as OP f/u wiht GI as needed
[2018-01-30 12:00] VITALS: BP 128/71; PULSE 76; TEMP 36.7; O2SAT 100
[2018-01-30] MEDS ORDERED: SUCRALFATE 1 GM/10 ML UDC PO SCH (13:00)
[2018-01-30] MEDS ORDERED: SUCR5SUS PO (13:27)
[2018-01-30] MEDS ORDERED: PRT40 PO (13:27)
--- NOTE | 2018-01-30 13:52 | Discharge Instructions ---
Discharge Instructions Date of Service January 30, 2018. Admission Reason for Admission: H And H 5.3 Or 6 Discharge Discharge Diagnosis / Problem: Symptomatic anemia, UGIB 2/2 PUD Discharge Goals Goal(s): Improve disease control, Prevent Disease Progression Activity Recommendations Activity Limitations: per Instructions/Follow-up section . Instructions / Follow-Up Instructions / Follow-Up Please take all medications as instructed on discharge list. Specifically, it is recommended that you take PRILOSEC 40mg TWICE DAILY x 6 weeks, and then switch to once daily. Also, CARAFATE suspension has been ordered for you to take FOUR TIMES DAILY x 2 weeks. Please follow-up with [facility] as instructed. You have a follow-up appointment with Dr. Lam on , 02/03 @ 12:45pm for follow-up from this hospitalization. The Gastroenterology team did recommend an UGI series as an outpatient to look for a large hiatal hernia which was seen on your chest x-ray. This can be ordered through your primary care office and results followed up with the Podiatric Assistant. It was a pleasure taking care of you! Call if you have any questions or problems. You can reach a [facility] hospitalist on duty at [facility] 24 hours a day by calling [phone]. Take care of yourself. Lucita Love DO [facility] Hospitalist Current Hospital Diet Patient's current hospital diet: Regular Diet Discharge Diet Recommended Diet: Regular Diet Procedures Procedures Performed: Esophagogastroduodenoscopy Pending Studies Studies pending at discharge: yes List of pending studies: stomach pathology pending at discharge Medical Emergencies . Who to Call and When: Medical Emergencies: If at any time you feel your situation is an emergency, please call 911 immediately. . Non-Emergent Contact Non-Emergency issues call your: Primary Care Provider . . "Provider Documentation" section prepared by Lucita Love. .
--- NOTE | 2018-01-30 13:55 | Discharge Summary ---
Discharge Summary Date of Service January 30, 2018. Discharge Summary Admission Date: January 29, 2018 at 08:55 Discharge Date: January 30, 2018 Discharge Disposition: Home Principal Diagnosis: UGIB 2/2 PUD post-hemorrhagic anemia Procedures: Endoscopy Vaccinations: None. Consultations: Gastroenterology-Vel Pending Studies/Follow-Up: see instructions below Medication Reconciliation New Medications: Pantoprazole (Pantoprazole Sodium) 40 Mg Tab 40 MG PO BID for 30 Days, #60 TAB 1 Refill Sucralfate (Sucralfate) 1 Gm/10 Ml Megan 1 GM PO QID for 15 Days, #420 ML 1 Refill Take four times daily for two weeks. Continued Medications: B-Complex Vitamins (Vitamin B Complex) 1 Tab Tab 1 TAB PO DAILY Gabapentin (Neurontin) 300 Mg Cap 300 MG PO HS, CAP Levothyroxine Sodium (Synthroid) 125 Mcg Tab 125 MCG PO DAILY, TAB Oxycodone Ir (Roxicodone Ir) 5 Mg Tab 5 MG PO HS PRN for Severe Pain, TAB Simvastatin (Zocor) 20 Mg Tab 20 MG PO QPM, TAB Tramadol (Ultram) 50 Mg Tab 50 MG PO Q6H PRN for Pain, TAB Discontinued Medications: Diclofenac (Voltaren) 50 Mg Tabec 50 MG PO TID, TAB Omeprazole (Prilosec) 20 Mg Capcr 20 CAP PO DAILY, CAP Ranitidine (Zantac) 300 Mg Tab 300 MG PO HS, TAB Admission Information HPI (per Admitting provider): 53-year-old female he was referred to the ED by primary care for anemia. Patient has history of anemia in August 2016. It was suspected she had GI blood loss from chronic NSAID use. Patient underwent EGD, colonoscopy, capsule endoscopy study that did not reveal source of bleeding. Patient reports she has had intermittent dark stools since that time. She reports last time her stools were dark with the beginning of November. No bright red bleeding per rectum. Patient has noted increasing shortness of breath on exertion for the past couple of weeks. She has had some mild lightheadedness and dizziness but denies any syncopal events. She reports chronic epigastric pain which has been worse over the past month. She reports pain improves after eating. She has had nausea but denies vomiting. Patient reports she does not take over-the- counter Advil or Motrin, however was recently prescribed diclofenac on November 27. She denies chest pain. No fevers or chills. She denies any urinary symptoms. Patient was seen by primary care yesterday who obtained labs that showed a hemoglobin of 6.3. She was referred to the ER for further evaluation. In the ED, patient's hemoglobin is 5.9. She is hemodynamic is stable. She was given Protonix bolus and started on a drip. She was also typed and crossed for blood. Physical Exam (per Admitting): General Appearance: WD/WN, no apparent distress Head: normocephalic, atraumatic Eyes: normal inspection, EOMI, sclerae normal ENT: hearing grossly normal, + pertinent finding (Mucous membranes moist) Neck: supple, no JVD, trachea midline Respiratory/Chest: lungs clear, normal breath sounds, no respiratory distress Cardiovascular: regular rate, rhythm, no edema, normal peripheral pulses Abdomen/GI: normal bowel sounds, non tender, soft, no organomegaly Extremities/Musculoskelatal: normal inspection, no calf tenderness, normal capillary refill Neurologic/Psych: no motor/sensory deficits, alert, normal mood/affect, oriented x 3 Skin: normal color, warm/dry Hospital Course Total time spent on discharge = 60 minutes This includes examination of the patient, discharge planning, medication reconciliation, and communication with other providers. [place] [address] Discharge Medical Patient Name: Erica Salazar Unit Number: [id number] Date of : 1965 Patient Status: Admitted Inpatient Attending Doctor: Lucita Love DO DI: Medical v5 Discharge Instructions Date of Service January 30, 2018. Admission Reason for Admission: H And H 5.3 Or 6 Discharge Discharge Diagnosis / Problem: Symptomatic anemia, UGIB 2/2 PUD Discharge Goals Goal(s): Improve disease control, Prevent Disease Progression Activity Recommendations Activity Limitations: per Instructions/Follow-up section . Instructions / Follow-Up Instructions / Follow-Up Please take all medications as instructed on discharge list. Specifically, it is recommended that you take PRILOSEC 40mg TWICE DAILY x 6 weeks, and then switch to once daily. Also, CARAFATE suspension has been ordered for you to take FOUR TIMES DAILY x 2 weeks. Please follow-up with [facility] as instructed. You have a follow-up appointment with Dr. Lam on , 02/03 @ 12:45pm for follow-up from this hospitalization. The Gastroenterology team did recommend an UGI series as an outpatient to look for a large hiatal hernia which was seen on your chest x-ray. This can be ordered through your primary care office and results followed up with the Regional Transportation Manager. It was a pleasure taking care of you! Call if you have any questions or problems. You can reach a [facility] hospitalist on duty at [facility] 24 hours a day by calling [phone]. Take care of yourself. Lucita Love DO [facility] Hospitalist Current Hospital Diet Patient's current hospital diet: Regular Diet Discharge Diet Recommended Diet: Regular Diet Procedures Procedures Performed: Esophagogastroduodenoscopy Pending Studies Studies pending at discharge: yes List of pending studies: stomach pathology pending at discharge Medical Emergencies . Who to Call and When: Medical Emergencies: If at any time you feel your situation is an emergency, please call 911 immediately. . Non-Emergent Contact Non-Emergency issues call your: Primary Care Provider . . "Provider Documentation" section prepared by uLcita Love. . Additional Copies To Michell Lam D.O.
[2018-01-30 13:57] VITALS: BP 128/71; PULSE 76; TEMP 36.7; O2SAT 100
--- NOTE | 2018-02-02 06:39 | EDITING REQUIRED CODING QUERY ---
CODING QUERY To promote full compliance with coding requirements relating to patient care, provider participation is requested in all cases of remote medical coder uncertainty. Please assist us with the question(s) below: Coding Question(s): There is Post-hemorrhagic Anemia documented on the Discharge Summary. Please specify below, in your clinical opinion, regarding the Post-hemorrhagic Anemia. ( x ) Acute Post-hemorrhagic Anemia ( ) Chronic Post-hemorrhagic Anemia Physician's Response(s): she recently started NSAIDs consistently within the last 3 months, and likely subsequently developed ulcers because of this. For that reason, I would say acute. Thank you! Thank you Kate Montoya Principal Diagnosis: "_that condition established after study, to be chiefly responsible for occasioning the admission of the patient to the hospital for care." Co-Existing Principal Diagnosis: "_when two or more diagnoses equally meet the criteria for principal diagnosis as determined by the circumstances of admission, diagnostic work up, and/or therapy provided, and the Alphabetic Index, Tabular List, or another coding guideline does not provide sequencing direction, any one of the diagnoses may be sequenced first." "When the physician has documented what appears to be a current diagnosis in the body of the record, but has not included the diagnosis in the final diagnostic statement, the physician should be asked whether the diagnosis should be added." (Source Coding [facility] 2 QTR90. p3-4)
== END 2018-01-30 14:16 | disposition home or self-care (01) | DRG 377 ==
LOC: C.EDB 07:58 → C.MSICU 08:55 → CANRESERV 09:26 → ENRESERV 09:26 → EDBEDREQ 09:32 → ENRESERV 10:05 → C.2E 17:43
PROVIDERS: ADMIT Hospitalist; ATTEND Hospitalist
PROC: 0DB68ZX Excision of Stomach, Via Natural or Artificial Opening Endoscopic, Diagnostic (ICD-10-PCS; principal; 2018-01-29 14:00)
DX: K25.4 Chronic or unspecified gastric ulcer with hemorrhage (principal); Q39.4 Esophageal web; D62 Acute posthemorrhagic anemia; T39.395A Adverse effect of other nonsteroidal anti-inflammatory drugs [NSAID], initial encounter; K29.70 Gastritis, unspecified, without bleeding; E03.9 Hypothyroidism, unspecified; E78.5 Hyperlipidemia, unspecified; G89.29 Other chronic pain; M54.9 Dorsalgia, unspecified; Z79.899 Other long term (current) drug therapy; Z87.891 Personal history of nicotine dependence; Z88.8 Allergy status to other drugs, medicaments and biological substances; Z83.3 Family history of diabetes mellitus; Z82.3 Family history of stroke; Z80.1 Family history of malignant neoplasm of trachea, bronchus and lung; Z80.8 Family history of malignant neoplasm of other organs or systems

== ENCOUNTER → 2018-05-11 | Outpatient (CLI) | payer BC ==
[~2018-05-11] MED LIST changes: +B-COTAB18 PO; -MULT-922 PO; +NRN/300 PO; +OXYC-90 PO; -OXYC1TAB3 PO; +PANT1TAB4 PO; -PRT40 PO; -RANI300T2 PO; +SIMV20TA5 PO; -SIMV5TAB2 PO; +SUCR5SUS PO
--- NOTE | 2018-05-11 08:36 | DIAGNOSTIC IMAGING REPORT ---
DOUBLE CONTRAST UPPER GI SERIES CLINICAL HISTORY: Iron deficiency anemia. Chronic blood loss. COMPARISON STUDY: No priors. TECHNIQUE: A standard air contrast upper GI series was performed. Spot images of the esophagus and stomach were obtained in multiple obliquities both upright and prone. FINDINGS: The patient swallowed barium without difficulty. The esophagus is structurally normal without evidence of intrinsic or extrinsic mass. The esophageal mucosal pattern is normal. No gastroesophageal reflux was elicited by having the patient perform the Valsalva maneuver. The gastroesophageal junction distends normally. There is a large sliding-type hiatal hernia, with the proximal half of the stomach located in the thoracic cavity. The stomach demonstrates normal distensibility. No mass or ulceration is identified. There was no evidence of gastritis. The duodenal bulb and sweep are unremarkable. Fusion hardware is noted in the thoracolumbar spine. Fluoroscopy time: 2 minutes. Fluoroscopic images: 19 IMPRESSION: 1. Normal assessment of the esophagus. 2. Large hiatal hernia. Electronically signed by: Patrice Brownlee M.D. 05/11/2018 8:35 AM Dictated Date/Time: 05/11/2018 8:31 AM
--- NOTE | 2018-05-11 09:18 | DIAGNOSTIC IMAGING REPORT ---
R VENOUS DOPP LOWER EXT UNILAT CLINICAL HISTORY: R LE EDEMA,IRON DEF ANEMIA DUE TO CHRON BLOOD LOSS pain. Edema. TECHNIQUE: Venous Doppler COMPARISON STUDY: None FINDINGS: Normal study IMPRESSION: Normal study The above report was generated using voice recognition software. It may contain grammatical, syntax or spelling errors. Electronically signed by: Carmine Guerrero M.D. 05/11/2018 9:17 AM Dictated Date/Time: 05/11/2018 9:16 AM
== END | disposition home or self-care (01) ==
LOC: C.ULTR 08:05
PROVIDERS: ATTEND Family Medicine
DX: R60.0 Localized edema (principal); D50.0 Iron deficiency anemia secondary to blood loss (chronic); K44.9 Diaphragmatic hernia without obstruction or gangrene